=== PATIENT | female | born 1970 | race Caucasian/White ===

== ENCOUNTER → 2018-10-13 10:45 | Outpatient (CLI) | payer BC, SELFPAY ==
--- NOTE | 2018-10-12 16:15 | EMB_PTH ---
PATIENT: MEAGAN PAYNE LOC: [facility] U#:[id number] AGE/SX: 55/F ROOM: RE10/13/[address]: Dr. Shree Castillo MD : 1970 BED: DIS: SPEC #: [id number] RECD: 10/13/18 10:31 STATUS: YUNIOR NICOLAS #: [id number] COSMO: 10/12/18 16:[address]: Shree Castillo DEPT: SURGICAL PATHOLOGY RECD BY: Alec Escobar Tissues: Endometrium, NOS Procedures: Surgery Specimen Level IV HEADER OPERATION: Endometrial biopsy PRE-OP DIAGNOSIS: N92.0 TISSUE SUBMITTED: Endometrial biopsy MICROSCOPIC DIAGNOSIS Endometrial biopsy: Scant strips of benign endometrial epithelium and superficial fragments of benign endometrial tissue. Fragments of benign endocervical epithelium, blood and mucous. See comment. TAVIA:katy 10/14/18 COMMENT The specimen predominantly consists of blood and mucous with a scant amount of endocervical and endometrial tissue. Clinical correlation and appropriate follow up are necessary. MICROSCOPIC DESCRIPTION Slides are reviewed. GROSS DESCRIPTION Received in fixative is one container labeled with the patient's name and designated EM biopsy. The specimen consists of multiple fragments of hemorrhagic soft tissue mixed with mucoid tissue that in aggregate measure 3 x 2.5 x 0.3 cm. The entire specimen is submitted in one cassette. / SJ:rg 10/13/18 TC:4 CPT: 54633
== END ==
PROVIDERS: Referring Provider Obstetrics & Gynecology; Visit Provider Obstetrics & Gynecology
DX: N92.0 Excessive and frequent menstruation with regular cycle (principal)
CPT/HCPCS: 88305

== ENCOUNTER 2019-04-18 09:37 | Day surgery (SDC) | payer BC, SELFPAY ==
[2019-04-13 17:50] LABS: Hematocrit 37.8 % (37-47); Hemoglobin 12.6 g/dl (12.0-15.0); Mean Corp Hgb Conc 33.3 g/gl (32-36); Mean Corpuscular Hgb 31.3 pg (27.0-32.0); Mean Corpuscular Volume 93.8 fL (81-99); Mean Platelet Vol. 10.2 fl (6.2-12.0); Platelet Count 208 K/mm3 (150-450); RBC Distribution Width CV 12.9 % (11.6-14.6); RBC Distribution Width SD 43.1 fl (35.1-43.9); Red Blood Count 4.03 M/mm3 (4.2-5.4); White Blood Count 4.8 K/mm3 (4.4-11.0)
[2019-04-13 17:58] LABS: Scan Indicated on CBC? Y/N NO
[2019-04-13 18:01] LABS: Prothrombin Time (Protime)PT. 12.9 SECONDS (11.7-14.9)
[2019-04-13 18:02] LABS: Partial Thromboplast Time 20.6 Seconds (24.1-36.2)
[2019-04-13 18:03] LABS: Internal QC Validated? YES +Cl - CLEAR BKGD; Pregnancy, Serum, hCG Quali. NEGATIVE Negative
--- NOTE | 2019-04-17 23:05 | PCM.HP.BLA ---
History and Physical Date of Admission: 04/18/19 Surgical History and Physical Radha Mckenzie, a 49 year old female 1 0 0 0 1, presents for Lap B salpingectomy, hs, D, HTA on April 18, 2019 at 11:00. -- Heavy Menses -- Radha presents here today as referral from Dr. Dl Brown for Menorrhagia and to discuss options for treatment. 48 y.o. G 1 P 1 non-smoker with regular menses and LMP of 10-27-18 lasting her average of 7-8 days. Reports about 2 years ago, she started with cramping prior to onset of menses and then would have heavy long periods lasting 7-8 days. Menorrhagia which began 2 years. Radha claims it started gradually and has been present worsening in last 6 months. It occurs with menses. It is located in the vagina.; It is located in the lower abdomen. Radha characterizes it to be non-radiating. Cyrustoro characterizes the quality Heavy bleeding, cramping prior to onset. Severity is moderate and not improving. MEDICATIONS HISTORY: Patient is also takin. No Meds ALLERGIES: No Known Allergies Infections - Chicken pox and Mumps Illnesses - no serious past illnesses Accidents - None Hospitalizations - see surgery Review of Systems: GENERAL - Denies fever, or chills SKIN - Denies skin changes EYES - Denies visual changes EARS - Denies difficulty hearing NOSE - Denies nasal congestion or bleeding MOUTH - Denies sore throat or difficulty swallowing NECK - Denies pain or swelling RESPIRATORY - Denies shortness of breath or wheezing CARDIOVASCULAR - Denies palpitations or chest pain GASTROINTESTINAL - Denies nausea, vomiting, diarrhea, constipation GENITOURINARY - Denies dysuria, frequency of urination, incontinence of urine MUSCULOSKELETAL - Denies joint or muscle pain NEUROLOGICAL - Denies localized numbness or weakness PSYCHIATRIC - Denies depression or anxiety ENDOCRINE - Denies heat or cold intolerance, weight loss or gain HEMATO-IMMUNOLOGIC - Denies excesive bleeding with cuts SOCIAL HISTORY: Alcohol Use - RARELY Smoking - Never Diet - no special diet Lifestyle - moderate stress lifestyle and Exercise - active work Seat Belt Use - always Employer - [employer] Job Description - [employer] Illicit Drug Use - None Sexual Activity - Spouse-Sig Other Name - David Mckenzie Spouse-Sig 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 1995 Dx. Laparoscopy ; Dr. Schumcaher - 2. 01/08/1999 ; Dr. Schumacher - 3. 2001 Ex. Laparoscopy ; Dr. Mendoza - 4. 2004 Ex. Laparoscopy ; Dr. Mendoza - PHYSICAL EXAM BP- 142/94 Sitting, Right arm, regular cuff Temp- 98.5 Taken Orally Weight- 110.95456 lbs Height- 62 inch BMI:20.23 CONSTITUTIONAL - NAD, well nourished, and well developed SKIN - No rash, lesions, or ulcers HEENT - Normocephalic, PERRLA, EOMI NECK - No nodes, no nuchal rigidity and thyroid normal size and texture LYMPH NODES - Palpation of lymph nodes in neck and groins within normal limits LUNGS - CTA x2 without wheezes, crackles or rales CARDIAC - Regular rate and rhythm without rubs, murmurs, or gallops BREAST - No dominant masses, no tenderness, no axillary adenopathy, no nipple discharge, no skin changes ABDOMEN - Without hepatosplenomegaly, distention, masses, rebound, or guarding; normal bowel sounds; no hernias EXTREMITIES - No edema or calf tenderness NEUROLOGICAL - Cranial nerves II-XII grossly intact PSYCHIATRIC - A and O to time, place, person, mood and affect External Genitial Vagina - non-tender without lesions Urethra/Urethral Meatus - non-tender Bladder - non-tender Vagina - vaginal richardson are pink and moist without loss of rugae and no evidence of atropy Cervix - without cervical motion tenderness and has normal size and features without evident lesions Uterus - uterus 6-7 cm non tender Adnexa - clear without massess or tenderness ASSESSMENT/PLAN: 1. Menorrhagia Discussed options for treatment and pt desires ablation. Pelvic u/s. EMBx and TSH OK. Also plan tubal. Plan Lap B salpingectomy, hs, D and C, HTA. Discussed RBAs and all questions answered.
[2019-04-18] VITALS (10 sets, daily range): BP systolic 92–143; BP diastolic 54–83; PULSE 57–78; RESP 14–16; TEMP 36.1–36.9; O2SAT 96–100; BMI 19.9
[2019-04-18 10:19] LABS: Internal QC Validated? YES +Cl - CLEAR BKGD; Pregnancy, Urine Negative Negative
--- NOTE | 2019-04-18 11:00 | FALS_PTH ---
PATIENT: MEAGAN PAYNE LOC: [facility] U#:[id number] AGE/SX: 49/F ROOM: RE04/18/[address]: Dr. Shree Castillo MD : 1970 BED: DIS: 04/18/2019 SPEC #: [id number] RECD: 04/18/19 16:37 STATUS: YUNIOR RELauren #: [id number] COSMO: 04/18/19 11:[address]: Shree Castillo DEPT: SURGICAL PATHOLOGY RECD BY: Alec Escobar ENTERED: 04/19/19 09:16 SP TYPE: FALL TUBES OTHR DR: Dr. Dl Brown MD Tissues: A - Fallopian tube B - Endometrium, NOS Procedures: Surgery Specimen Level II Surgery Specimen Level IV HEADER OPERATION: Hysteroscopy, D & C, hydroablation PRE-OP DIAGNOSIS: Menorrhagia TISSUE SUBMITTED: A - Bilateral fallopian tubes, B - Endometrial curettings MICROSCOPIC DIAGNOSIS A. Bilateral fallopian tubes: Bilateral fallopian tubes including fimbrial ends, no pathologic diagnosis. B. Endometrial curettings: Proliferative endometrium. TAVIA:katy 04/20/19 MICROSCOPIC DESCRIPTION Slides are reviewed. GROSS DESCRIPTION A - Received is one container labeled with the patient's name and designated bilateral fallopian tubes. The specimen consists of two fallopian tubes with an average length of 5.5 cm and has an average diameter of 0.6 cm. Both fallopian tubes have normal fimbriated ends. No mass lesions are identified. Toll Mechanic sections are submitted in two cassettes as follows: 1 - one fallopian tube, 2 - the other fallopian tube. B - Received in fixative is one container labeled with the patient's name and designated endometrial curettings. The specimen consists of multiple irregular fragments of dark yanes soft tissue that in aggregate measure 2.5 x 2 x 0.1 cm. The specimen is totally submitted in one cassette. / AM:katy 04/19/19 TC:4 CPT: 07556 x2, 78732
[2019-04-18] MEDS: Ropivacaine 0.5% 30 ML Vial (12:40)
--- NOTE | 2019-04-18 13:43 | OP.PCM_ITS ---
Report of Operation Date of Procedure: 04/18/19 Pre-Operative Diagnosis: Desires Permanent Sterilization, Menorrhagia Post-Operative Diagnosis: Desires Permanent Sterilization, Menorrhagia, Submucous Uterine Fibroids, Adhesions Surgery/Procedure Performed:: Diagnostic Laparoscopy, Bilateral Salpingectomy, Lysis of Adhesions, Diagnostic Hysteroscopy, Dilation and Curettage, Hydrothermal Ablation Description of Surgical Findings:: 10 cm fibroid uterus. Possible endometriosis implants, adhesions of rectosigmoid to anterior abdominal wall, 4 cm anterior intramural fibroid, 1.5 cm submucous fibroid posteriorly near the cervix, minimal prolapse of the uterine cervix which would make lap assisted or vaginal hysterectomy without robotics difficult. Type of Anesthesia:: General - Endotracheal Anesthesiologist: Dale Cortes Drains: None Estimated Blood Loss (mL): Minimal Fluids Replaced: Crystalloid Description of Procedure: Surgeon: Shree Castillo MD, FACOG Indication: This is a 49 year old patient who has been having problems with extremely heavy menses. She also desires permanent sterilization. Conservative measures have not been helpful. Endometrial sampling was benign and pelvic ultrasound showed that ablation may be helpful. Pt has been counseled regarding the risks, benefits and alternatives of this procedure and all questions answered. She understands that only about half of patients will have amenorrhea after this procedure. She also understands the permanent nature of her tubal as well as the failure rate of 1-2%. All questions were answered we consider the patient well-informed. Procedure: Patient taken to the operating room where after induction of general anesthesia the patient was prepped and draped in the usual sterile fashion. Bladder was drained of urine with a catheter. Conn cannula was placed and attention was turned toward the laparoscopic portion of the procedure. Approximately 15 cc of half percent ropivacaine was injected subumbilically suprapubically and midway between. A 5 mm bladeless trocar was placed subumbilically and intraperitoneal placement confirmed. After CO2 insufflation was complete, a 5 mm bladeless trocar was introduced suprapubically. The above findings were noted. A 5 mm port was then placed midway between these 2 ports for tubal manipulation. Each fallopian tube was identified to its fimbriated end and an Enseal device was used to divide the mesosalpinx leaving no remnant tube on each side. Some adhesions between the rectosigmoid and anterior abdominal wall were taken down with the Enseal device. The peritoneal cavity and upper abdomen were examined and noted to be normal. Photographs were taken. Laparoscopic instruments with as much CO2 gas as possible were removed and incisions were closed with interrupted 4-0 Monocryl suture. Steri-Strips placed across the incision. Anterior cervix was grasped and cervix was dilated to about 17 Indonesian size. Hysteroscopic hydrothermal ablation (HTA) unit was placed in the cervix and the above findings were noted. HTA unit was removed and the uterus was gently curretted removing all contents. An HTA ablation cycle was then carried out at about 90 degrees Centigrade for 10 minutes with virtually no fluid loss during the procedure. After an appropriate cool down the HTA unit was removed with minimal bleeding noted. Patient tolerated procedure well was taken to recovery room in satisfactory condition sponge instrument and needle counts were all reportedly correct. Estimated blood loss for the case was minimal. Specimens to pathology were endometrial curettings and bilateral fallopian tubes. Grafts/Implants Used: None - Complications None - Admit VTE Documentation VTE Present on Admission: Yes VTE Mechan Device Prophylaxis: SCD's VTE Pharm Prophylaxis ordered?: No Reason prophylaxis not ordered:: Treatment Not Indicated
--- NOTE | 2019-04-18 13:44 | DCINST_ITS ---
Discharge Diet: No Restrictions Discharge Activity: Return to Normal Activity, May Drive - when you are no longer taking pain/narcotic medicines., May Shower, May Take a Tub Bath Additional Activity Instructions:: Ambulate often the next week after surgery. Nothing in the vagina for 5 days. Call your doctor if your incision/area has: Continuous Slow Oozing, Sudden Increased Bleeding, Increased Pain/ Swelling, Increased Redness, Foul Smelling Discharge Call your doctor if you observe: Fever of 101 or Higher, Inability to urinate, Inability to have a bowel movement, Using more than one pad per hour Allergies/Adverse Reactions: Allergies No Known Allergies Allergy (Verified 04/18/19 09:55) Medications to take at Discharge Oxycodone [Oxyir] 5 mg PO Q6H PRN PRN 7 Days #14 tab 04/18/19 The following prescriptions were given: Oxycodone [Oxyir] 5 mg PO Q6H PRN PRN 7 Days #14 tab PRN Reason: Severe Pain (-08/18) Primary Care Physician: Dl Brown [Primary Care Provider] - Test Results: Test results from this visit will be discussed in further detail at your follow- up appointment, if applicable. Please Follow Up With: Shree Castillo MD - [phone] When: 3 to 4 weeks
== END 2019-04-18 17:58 | disposition home or self-care (01) ==
LOC: SDC 09:37 → AC 09:38
PROVIDERS: Family Provider Family Medicine; PCP Family Medicine; Referring Provider Obstetrics & Gynecology; Visit Provider Obstetrics & Gynecology
PROC: 0U5B8ZZ Destruction of Endometrium, Via Natural or Artificial Opening Endoscopic (ICD-10-PCS; CPT 58563; principal; 2019-04-18 10:45)
PROC: (CPT 58661; 2019-04-18 10:45)
DX: Z30.2 Encounter for sterilization (principal); N92.0 Excessive and frequent menstruation with regular cycle; D25.0 Submucous leiomyoma of uterus; D25.1 Intramural leiomyoma of uterus; G25.81 Restless legs syndrome
CPT/HCPCS: 00840; 58563; 58661; 36415; 81025; 84703; 85027; 85610; 85730; 86850; 86900; 88302; 88305; J7120; C1760; J2405

== ENCOUNTER → 2020-08-21 | Outpatient (CLI) | payer BC, SELFPAY ==
[2019-04-18 09:56] VITALS: BMI 19.9
[2020-08-24 15:29] LABS: HPV Reflexed? NOT INDICATED
== END | disposition home or self-care (01) ==
LOC: LABSPEC 08-22 09:06
PROVIDERS: PCP Family Medicine; Visit Provider Obstetrics & Gynecology
CPT/HCPCS: 88175; G0145

== ENCOUNTER 2021-08-13 11:30 | Outpatient (RCR) | payer OTHER, BC, SELFPAY ==
--- NOTE | 2021-08-06 13:19 | HP.OTEVAL ---
Patient's Visit Information MEAGAN PAYNE is a 51 year old F, referred to Occupational Therapy by Dr. Jana Theodore MD, with a diagnosis of right LF crush injury with open fracture of distal phalanx. Date of Evaluation: 08/06/21 Occupational Therapist: Pippa Benson, EMILIA/Fitz, CHT - Subjective This 51 year old female was seen for OT eval with dx of right LF crush injury- pt states DOI, pt went to ER took x-ray and gave stitched- went to [facility] [address] and las was seen on 07/31/21 was released for work conditioning. pt works at in [employer]- pt states she has to lift 50#. pt is on light duty. pt 4 weeks and 4 days from injury and would like to return to her PLOF with ADLs and IADLs. - Pain right LF 3 Pain Intensity Range: 2, 5 - ROM MP: right LF 0/86 left 0/100 PIP: right LF 0/105 left 0/105 DIP: right LF 0/35 left 0/50 - Strength Nursing Support Worker: right 60# left 83# Lateral Pinch: right 10# left 10# Tripod Pinch: right 10# left 10# - Quick DASH-Disab of Arm,Shoulder& Hand Quick DASH Score: 41.6650 - Goals Goal:: pt will demo a increase in right director data analytics strength by 20# or greater to return pt to PLOF by d.c Goal:: pt will demo a tight composite fist to ind. hold small objects with out difficulty in two weeks Goal:: pt will demo the ability to tolerate work simulation tasks for 60 min or greater without increase in pain by d.c Goal:: pt will demo understanding for nail support to avoid accidently pulling off damaged nail. - Rehabilitation General Assessment: pt arrives 4 weeks 4 days from injury- pt demo limited ROM and sensitivity with tip of LF- pt has nail intact at this time but it is breaking lose. Pt weakness limiting return to work. pt would benefit from skilled OT services 1x week for 10 weeks to return pt to PLOF. Today therapist ed. pt on tendon glide exercises, therapist advised pt to file down rough edges of nail as to not catch it on something and pull it off unintentional. Pt agreed t and agreed with POC. Rehabilitation Potential: Excellent - Anticipated Interventions A/AAROM/PROM, Strengthening, Desensitization, Orthoses, Ergonomic Education, Fine Motor Coord/Scotty, Education re Diagnosis, Home Program - Visit Plan Frequency: 1x/Week Duration: 2 Months TEXT: Thank you for the opportunity to evaluate your patient. For Medicare and Medicare HMO plans, please review the plan of care and approve it. It will need to be FAXED BACK to us at [phone] for Medicare purposes. Please let me know if there are questions or concerns regarding this plan of care. Physician Signature: Date:
--- NOTE | 2021-11-28 11:40 | HP.OT.NRP ---
MEAGAN PAYNE was seen in my office for initial evaluation on 08/06/21. The following Plan of Care was established for this patient: Initial Frequency: 1x/Week Initial Duration: 2 Months Anticipated Interventions: A/AAROM/PROM, Strengthening, Desensitization, Orthoses, Ergonomic Education, Fine Motor Coord/Scotty, Education re Diagnosis, Home Program This patient was last seen in our office 08/13/21. Pertinent comments regarding their Occupational therapy will appear below: pt was seen for 2 OT sessions- cancelled her 3rd scheduled apt. pt has not scheduled further apts and due to time lapse in services pt d/c. At this point I will be discontinuing this patient from occupational therapy. I would be happy to see this patient again in the future if found appropriate by the physician. Thank you! Pippa Benson, OTR/L, CHT
== END 2021-08-13 19:00 | disposition home or self-care (01) ==
LOC: OT 11:30
PROVIDERS: PCP Family Medicine; Referring Provider Orthopaedic Surgery Hand Surgery; Visit Provider Orthopaedic Surgery Hand Surgery
DX: S62.639D Displaced fracture of distal phalanx of unspecified finger, subsequent encounter for fracture with routine healing (principal); X58.XXXD Exposure to other specified factors, subsequent encounter
CPT/HCPCS: 97166; 97530

== ENCOUNTER → 2022-04-29 | Outpatient (CLI) | payer BC, SELFPAY ==
[2022-05-02 16:11] LABS: HPV Reflexed? NOT INDICATED
== END | disposition home or self-care (01) ==
LOC: LABSPEC 16:29
PROVIDERS: PCP Family Medicine; Visit Provider Obstetrics & Gynecology
DX: Z12.4 Encounter for screening for malignant neoplasm of cervix (principal)
CPT/HCPCS: 88175; G0145